=== PATIENT | female | born 1985 | race Caucasian/White ===

== ENCOUNTER → 2019-12-09 | Outpatient (CLI) | payer OTHER | LOC: COL.RAD 13:03 | DX: M75.111 Incomplete rotator cuff tear or rupture of right shoulder, not specified as traumatic (principal) | CPT/HCPCS: A9585; Q9967 ==

== ENCOUNTER → 2019-12-29 | Outpatient (CLI) | payer OTHER | LOC: COL.RAD 12:52 | DX: M25.511 Pain in right shoulder (principal) | CPT/HCPCS: J3301; Q9967 ==

== ENCOUNTER → 2020-03-20 | Outpatient (CLI) | payer OTHER | LOC: COL.RAD 13:41 | DX: M25.511 Pain in right shoulder (principal) | CPT/HCPCS: J3301; Q9967 ==